=== PATIENT | female | born 2000 | race Caucasian/White ===

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

== ENCOUNTER 2022-06-15 00:37 | Emergency (ER) | payer MEDICAID ==
[~2022-06-15] VITALS: Ht 160 cm; Wt 62.1 kg
[2022-06-15 00:47] VITALS: BP_SYST 104
--- NOTE | 2022-06-15 00:54 | NUR ---
Pt from home with c/o of sharp medial abd pain x1 week. Pt reports constant nausea and abd pain when eating. Pt reports some episodes vomiting. VSS.
--- NOTE | 2022-06-15 00:58 | NUR ---
ER Dr. ROUSE at bedside examining patient.
--- NOTE | 2022-06-15 00:59 | NUR ---
PT IS AA&OX4. AFEBRILE. NAD. C/O 05/07 MID ABD PAIN W/ N/V FOR A WEEK NOW. LMP WAS JUN 04, 2022. AMBULATORY W/ STEADY GAIT. SAFE & HAZARD FREE ENVIRONMENT PROVIDED.
--- NOTE | 2022-06-15 01:05 | NUR ---
Urine specimen collected and analyzed in ER FOR PREG TEST. Result IS NEGATIVE. MADE AWARE. URINE SPECIMEN COLLECTED FOR UA AND SENT TO LAB.
[2022-06-15] MEDS ORDERED: ONDANSETRON HCL 4 MG/2 ML VIAL IVP ONE (01:15)
[2022-06-15] MEDS ORDERED: MORPHINE 2 MG/ML INJ. SYRINGE IVP ONE (01:15)
[2022-06-15] MEDS ORDERED: NACL 0.9% 1,000 ML IV ONE (01:15)
[2022-06-15 01:24] LABS: BILIRUBIN,URINE NEGATIVE (NEGATIVE); BLOOD, URINE NEGATIVE (NEGATIVE); CLARITY/URINE CLEAR (CLEAR); COLOR,URINE YELLOW (YELLOW); GLUCOSE,URINE NEGATIVE (NEGATIVE); KETONES,URINE NEGATIVE (NEGATIVE); LEUKOCYTE ESTERASE ,URINE 1+ (NEGATIVE); NITRITE, URINE NEGATIVE (NEGATIVE); PROTEIN URINE NEGATIVE (NEGATIVE); UROBILINOGEN,URINE 0.2 (0.2-1.0)
[2022-06-15] MEDS ORDERED: PANTOPRAZOLE SODIUM 40 MG/VIAL (PROTONIX) IVP ONE (01:30)
--- NOTE | 2022-06-15 01:32 | NUR ---
# 18 gauge angiocath placed to RAC . Use of asceptic technique. Opsite placed over site. Blood return noted. Blood for lab drawn from site. TOLERATED WELL. Flushed with 10 cc of normal saline. No evidence of infiltration noted. Patient tolerated well.
[2022-06-15 01:39] LABS: MEAN CORPUSCULAR HGB CONC 32 % (32-36)
[2022-06-15 01:45] LABS: BASOPHILS # (AUTO) 0.1 K/uL (0.0-0.2); BASOPHILS % (AUTO) 0.6 % (0.0-2.0); EOSINOPHILS # (AUTO) 1.1 K/uL (0.0-0.4); EOSINOPHILS % (AUTO) 9.3 % (0.0-4.0); HEMATOCRIT 42.3 % (36-48); HEMOGLOBIN 13.6 g/dL (12.0-16.0); LYMPHOCYTES # (AUTO) 4.2 K/uL (1.0-5.5); LYMPHOCYTES % (AUTO) 34.7 % (20.5-51.5); MEAN CORPUSCULAR HEMOGLOBIN 29 pg (27-31); MEAN CORPUSCULAR VOLUME 90 fL (79.0-98.0); MONOCYTES # (AUTO) 0.6 K/uL (0.0-1.0); MONOCYTES % (AUTO) 4.7 % (1.7-9.3); NEUTROPHILS # (AUTO) 6.1 K/uL (1.8-7.7); NEUTROPHILS % (AUTO) 50.7 % (40.0-70.0); PLATELET COUNT (AUTO) 297 K/uL (130-430); RED BLOOD CELL COUNT(AUTO) 4.68 MIL/uL (4.2-6.2); RED CELL DISTRIBUTION WIDTH 13.5 % (9.0-15.0)
[2022-06-15 01:48] LABS: CALCIUM 8.6 mg/dL (8.4-11.0); CREATININE 0.82 mg/dL (0.55-1.30); POTASSIUM 4.9 mmol/L (3.5-5.1)
[2022-06-15 01:53] LABS: RBC,URINE NONE SEEN /HPF (0-3)
[2022-06-15 01:53] LABS: ALBUMIN 3.9 g/dL (3.4-4.8); TOTAL BILIRUBIN 0.6 mg/dL (0.0-1.0)
[2022-06-15 01:54] LABS: BACTERIA,URINE FEW /HPF (None Seen); HCG,QUAL RESULT NEGATIVE (NEGATIVE)
[2022-06-15] MEDS ORDERED: ONDA-8 TL (03:23)
[2022-06-15] MEDS ORDERED: CEPH-548 PO (03:23)
[2022-06-15] MEDS ORDERED: IBUP-1971 PO (03:23)
[2022-06-15] MEDS ORDERED: cefTRIAXone 1 GM IVPB PREMIX 50 ML IV ONE (03:45)
[2022-06-15 03:48] VITALS: BP_SYST 110
--- NOTE | 2022-06-15 03:49 | NUR ---
Patient given written and verbal discharge instructions and verbalizes understanding. ER MD discussed with patient the results and treatment provided. Patient in stable condition. ID arm band removed. IV catheter removed intact and dressing applied, no active bleeding. Rx of KEFLEX, IBUPROFEN & ZOFRAN given. Patient educated on pain management and to follow up with PMD. Pain Scale 0/10. Opportunity for questions provided and answered. Medication side effect fact sheet provided.
== END 2022-06-15 03:48 | disposition home or self-care (01) ==
LOC: SED 00:37
DX: R10.13 Epigastric pain (principal); R11.2 Nausea with vomiting, unspecified; Z79.899 Other long term (current) drug therapy
CPT/HCPCS: 99284; 74176; 96365; 96375; 76700; 96361; 80053; 81000; 84703; 83690; 85025; 87086; 36415; 76376; 81025; J0696; J2405; C9113; J2270; J7030